=== PATIENT | female | born 1965 | race African-American/Black ===

== ENCOUNTER 2017-08-23 13:55 | Outpatient (CLI) | payer OTHER ==
--- NOTE | 2017-08-23 15:54 | MMO ---
BILATERAL SCREENING MAMMOGRAM: Date: 08/23/17 INDICATION: Annual exam. COMPARISON: Prior exam dated 08/07/15. FINDINGS: Interpretation of this exam was assisted with computer-aided detection. The breast parenchyma is heterogeneously dense, which limits the sensitivity of mammography. There is benign-appearing calcification within the right breast that are stable. No definite suspicious mass, cluster of microcalcifications, or area of architectural distortion is e vident. IMPRESSION: BIRADS 2: Benign Finding(s) Recommend routine annual mammographic screening. POS: [facility]
== END 2017-08-23 13:56 | disposition home or self-care (01) ==
LOC: MAMMO 13:55
PROVIDERS: ATTEND Family Medicine
DX: Z12.31 Encounter for screening mammogram for malignant neoplasm of breast (principal)
CPT/HCPCS: 77067; G0202

== ENCOUNTER 2018-01-04 13:15 | Emergency (ER) | payer OTHER ==
[2018-01-04] MEDS ORDERED: Lidocaine 1% PF 5 ML VIAL ONE (13:30)
[2018-01-04] MEDS ORDERED: Adacel (T-DAP) 0.5 ML VIAL ONE (13:37)
== END 2018-01-04 14:12 | disposition home or self-care (01) ==
LOC: ERS 13:15
DX: L02.416 Cutaneous abscess of left lower limb (principal)
CPT/HCPCS: 10060; 87070; 87077; 87186; 87205; 90471; 90715; J2001

== ENCOUNTER 2018-05-09 07:27 | Outpatient (CLI) | payer OTHER ==
--- NOTE | 2018-05-09 10:01 | ULT ---
COMPLETE AD ULTRASOUND: INDICATION: Elevated LFTs. FINDINGS: There is coarse echotexture involving the liver with increased echogenicity. The liver measures 18.4 cm. Visualized aspects of the abdominal aorta and IVC were within normal limits. Visualized portions of the pancreas appear within normal limits. The gallbladder is normal appearing. No sonographic Vázquez's sign is reported. Common bile duct mathew sured 5 mm. The right kidney measures 9.7 cm in length and the left measures 12.2 cm. The spleen measures 10.8 cm. IMPRESSION: 1. Coarse echotexture of the liver with increased echogenicity suspicious for chronic liver disease. 2. No acute abnormality otherwise. POS: [facility]
== END 2018-05-09 07:28 | disposition home or self-care (01) ==
LOC: ULT 07:27
PROVIDERS: ATTEND Family Medicine
DX: R74.0 Nonspecific elevation of levels of transaminase and lactic acid dehydrogenase [LDH] (principal); R93.2 Abnormal findings on diagnostic imaging of liver and biliary tract
CPT/HCPCS: 76700

== ENCOUNTER 2018-08-30 09:40 | Outpatient (CLI) | payer OTHER | END 2018-08-30 09:41 | disposition home or self-care (01) | LOC: BICMAMMO 09:40 | PROVIDERS: ATTEND Family Medicine | DX: Z12.31 Encounter for screening mammogram for malignant neoplasm of breast (principal) | CPT/HCPCS: 77063; 77067 ==

== ENCOUNTER 2019-09-01 09:05 | Outpatient (CLI) | payer OTHER ==
--- NOTE | 2019-09-01 14:33 | MMO ---
Bilateral MAMMO Bilat Screen [facility]. CLINICAL HISTORY: Patient is 54 years old and is seen for screening. The patient has no family history of breast cancer. The patient has no personal history of cancer. VIEWS: The views performed were: bilateral craniocaudal with tomosynthesis and bilateral mediolateral oblique with tomosynthesis. FILMS COMPARED: The present examination has been compared to prior imaging studies performed at [facility] on 08/15/2015, 08/20/2016, 08/23/2017 and 08/30/2018. This study has been interpreted with the assistance of computer-aided detection. MAMMOGRAM FINDINGS: The breasts are heterogeneously dense, which could obscure a lesion on mammography. There are no suspicious masses, suspicious calcifications, or new areas of architectural distortion. IMPRESSION: THERE IS NO MAMMOGRAPHIC EVIDENCE OF MALIGNANCY. A ROUTINE FOLLOW-UP MAMMOGRAM IN 1 YEAR IS RECOMMENDED. THE RESULTS OF THIS EXAM WERE SENT TO THE PATIENT. ACR BI-RADS Category 1 - Negative MAMMOGRAPHY NOTE: 1. A negative mammogram report should not delay a biopsy if a dominant of clinically suspicious mass is present. 2. Approximately 10% to 15% of breast cancers are not detected by mammography. 3. Adenosis and dense breasts may obscure an underlying neoplasm. Reported by: SUSANNA LOO MD Electonically Signed: [id number]
== END 2019-09-01 09:06 | disposition home or self-care (01) ==
LOC: BICMAMMO 09:05
PROVIDERS: ATTEND Family Medicine
DX: Z12.31 Encounter for screening mammogram for malignant neoplasm of breast (principal)
CPT/HCPCS: 77063; 77067

== ENCOUNTER 2020-09-02 09:32 | Outpatient (CLI) | payer OTHER ==
--- NOTE | 2020-09-02 10:37 | MMO ---
Bilateral MAMMO Bilat Screen [facility]. CLINICAL HISTORY: Patient is 55 years old and is seen for screening. The patient has no family history of breast cancer. The patient has no personal history of cancer. VIEWS: The views performed were: bilateral craniocaudal with tomosynthesis and bilateral mediolateral oblique with tomosynthesis. FILMS COMPARED: The present examination has been compared to prior imaging studies performed at [facility] on 08/20/2016, 08/23/2017, 08/30/2018 and 09/01/2019. This study has been interpreted with the assistance of computer-aided detection. MAMMOGRAM FINDINGS: The breasts are heterogeneously dense, which could obscure a lesion on mammography. There are no suspicious masses, suspicious calcifications, or new areas of architectural distortion. IMPRESSION: THERE IS NO MAMMOGRAPHIC EVIDENCE OF MALIGNANCY. A ROUTINE FOLLOW-UP MAMMOGRAM IN 1 YEAR IS RECOMMENDED. THE RESULTS OF THIS EXAM WERE SENT TO THE PATIENT. ACR BI-RADS Category 1 - Negative MAMMOGRAPHY NOTE: 1. A negative mammogram report should not delay a biopsy if a dominant of clinically suspicious mass is present. 2. Approximately 10% to 15% of breast cancers are not detected by mammography. 3. Adenosis and dense breasts may obscure an underlying neoplasm. Reported by: ASTON NUNEZ MD Electonically Signed: [id number]
== END 2020-09-02 09:33 | disposition home or self-care (01) ==
LOC: BICMAMMO 09:32
PROVIDERS: ATTEND Family Medicine
DX: Z12.31 Encounter for screening mammogram for malignant neoplasm of breast (principal)
CPT/HCPCS: 77063; 77067

== ENCOUNTER 2021-09-03 09:29 | Outpatient (CLI) | payer OTHER | END 2021-09-03 09:30 | disposition home or self-care (01) | LOC: BICMAMMO 09:29 | PROVIDERS: ATTEND Family Medicine | DX: Z12.31 Encounter for screening mammogram for malignant neoplasm of breast (principal) | CPT/HCPCS: 77063; 77067 ==

== ENCOUNTER 2025-09-25 09:19 | Outpatient (CLI) | payer BC | END 2025-09-25 09:20 | disposition home or self-care (01) | LOC: BICMAMMO 09:19 | PROVIDERS: ATTEND Student in an Organized Health Care Education/Training Program | DX: Z12.31 Encounter for screening mammogram for malignant neoplasm of breast (principal); Z78.0 Asymptomatic menopausal state; R92.333 Mammographic heterogeneous density, bilateral breasts; M85.89 Other specified disorders of bone density and structure, multiple sites | CPT/HCPCS: 77063; 77067; 77080 ==